=== PATIENT | female | born 1980 | race Caucasian/White ===

== ENCOUNTER 2016-05-21 08:54 | Inpatient (IN) ==
[2016-05-18 10:03] LABS: MANUAL DIFF NEEDED? NO
[2016-05-18 10:34] LABS: BASO% 0.3 % (0.0-0.8); EOS# 0.09 X1000 (0.0-0.7); EOS% 0.7 % (0.0-10.0); HEMOGLOBIN 12.3 g/dL (12.0-16.0); IMM GRAN# 0.02 X1000 (0.0-0.04); IMM GRAN% 0.2 % (0.0-0.5); LYMPH# 2.17 X1000 (1.2-3.4); LYMPH% 16.9 % (20.5-51.1); MCH 28.3 PG (27-31); MCHC 32.4 g/dL (33-37); MCV 87.4 FL (81-99); MONO% 6.2 % (1.7-9.3); NEUT% 75.7 % (42.2-75.2); PLT 389 X1000 (130-400); RBC 4.35 XMIL (4.2-5.4)
[2016-05-18 11:05] LABS: AGAP 15; BUN 6 mg/dL (8-22); CALCIUM 9.2 mg/dL (8.8-10.2); CHLORIDE 97 mmol/L (98-107); COSMO 271; POTASSIUM 3.7 mmol/L (3.5-5.1); SODIUM 137 mmol/L (136-145); TCO2 25 mmol/L (25-35)
[2016-05-21] MEDS ORDERED: PEPCID ONE (10:00)
[2016-05-21] MEDS ORDERED: REGLAN ONE (10:00)
[2016-05-21] MEDS ORDERED: VALIUM ONE (10:00)
[2016-05-21] MEDS ORDERED: LR 1,000 ML ONE ×3 (10:00→15:20)
[2016-05-21] MEDS ORDERED: MEFOXIN 2 GM/NS 50 ML ONE (10:01)
[2016-05-21] MEDS ORDERED: MARCAINE 0.25% PF ONE (10:57)
[2016-05-21] MEDS ORDERED: SODIUM CHLORIDE 0.9% 10 ML ONE (10:57)
[2016-05-21] MEDS ORDERED: EXPAREL 1.3% ONE (10:58)
[2016-05-21 12:48] LABS: URINE SOURCE CATH
[2016-05-21 12:56] LABS: BILIRUBIN URINE NEGATIVE (NEGATIVE); BLOOD URINE NEGATIVE (NEGATIVE); COLOR YELLOW; GLUCOSE URINE NEGATIVE (NEGATIVE); LEUKOCYTES URINE NEGATIVE (NEGATIVE); NITRITE URINE NEGATIVE (NEGATIVE); PROTEIN URINE 50 mg/dL (NEGATIVE); SP GRAVITY URINE 1.027; TURBIDITY URINE CLEAR (CLEAR); UROBILINOGEN URINE NORMAL (NORMAL)
[2016-05-21 13:12] LABS: URINE RBC <10 /HPF (<10)
[2016-05-21 13:13] LABS: UR EPITHELIAL CELLS >10 /HPF (<10); URINE BACTERIA NEGATIVE /HPF; URINE MICRO REVIEW NEEDED? YES; URINE WBC <10 /HPF (<10)
[2016-05-21 13:18] LABS: URINE CASTS NONE SEEN; URINE CRYSTALS NONE SEEN; URINE SMALL ROUND CELLS NONE SEEN
[2016-05-21] MEDS ORDERED: FENTANYL ONE (13:21)
[2016-05-21] MEDS ORDERED: NS 1,000 ML ONE (13:21)
[2016-05-21] MEDS ORDERED: DIPRIVAN 1% ONE (13:22)
[2016-05-21] MEDS ORDERED: MORPHINE ONE (13:29)
[2016-05-21] MEDS: MORPHINE ONE ×4 (13:40→14:05)
[2016-05-21] MEDS ORDERED: ZOFRAN IV PRN (14:24)
[2016-05-21] MEDS ORDERED: MORPHINE IV PRN (14:24)
--- NOTE | 2016-05-21 14:54 | OPERATIVE NOTE ---
PROCEDURE DATE: 05/21/2016 PREOPERATIVE DIAGNOSIS: Splenic cyst (symptomatic). POSTOPERATIVE DIAGNOSIS: Splenic cyst (symptomatic). PROCEDURE: 1. Exploratory laparotomy. 2. Open splenectomy. SURGEON: Carl Hernandez MD STONEMASON SUPERVISOR: MD Dr. Jose Huffman, assisted with retraction and identification and ligation of the major splenic vessels. ANESTHESIA: General endotracheal. INTRAOPERATIVE FINDINGS: At least 8-9 cm cystic lesion noted on the edge of the spleen. COMPLICATIONS: None at time of dictation. ESTIMATED BLOOD LOSS: 50 mL. SPECIMENS REMOVED: Spleen. BRIEF HISTORY: The patient is a 35-year-old female presenting with left upper quadrant pain. She had a CT scan that showed a large cyst, it was believed to be the origin of her symptoms. Given this, we elected to perform a splenectomy. The risks, benefits, alternatives were discussed. She did receive her post splenectomy vaccines 2 weeks prior to her procedure. DESCRIPTION OF PROCEDURE: After informed consent was obtained, patient was brought to the operative theatre, transferred to the operative table and placed in the supine position. General endotracheal anesthesia was then performed without complication. A formal time-out was then performed confirming patient, date, procedure. All were in agreement. At that time, attention turned to the abdomen, after it was prepped and draped we made a standard midline incision on the upper aspect of the incision of the abdomen carried down through the subcutaneous tissue to the fascia, we entered into the abdomen on the linea alba. Once we were able to enter into the abdomen, we were able to palpate the spleen. Using a combination of blunt dissection and electrocautery, we were able to elevate the spleen from its position in the left upper quadrant to the midline. We used Bovie to cauterize the short gastric vessels. We identified the splenic artery and splenic vein and suture ligated both the splenic artery and splenic vein. We were able to preserve the tail of the pancreas. The large cyst was noted. It remained intact during entirety of the dissection. Once we had ligated the major vessels we were able to remove the spleen in its entirety. Again, the splenic vessels were hemostatic after ligation. The tail of the pancreas appeared to be intact and not injured. We irrigated out the area copiously. We re- examined the splenic bed, there was no active bleeding noted. We then irrigated out the abdomen again. There was no other pathology appreciated in the abdomen at this time. We then closed the abdomen in layers using 0 chromic for the peritoneum, running loop PDS for the fascia, and Monocryl for the skin. The patient tolerated the procedure well, was transferred to recovery room in stable condition. She will be admitted and monitored at least overnight.
[2016-05-21] MEDS ORDERED: NEOSTIGMINE ONE (15:19)
[2016-05-21] MEDS ORDERED: ZOFRAN ONE (15:19)
[2016-05-21] MEDS ORDERED: DECADRON ONE (15:20)
[2016-05-21] MEDS ORDERED: XYLOCAINE-MPF 2% ONE (15:20)
[2016-05-21] MEDS ORDERED: ROBINUL ONE (15:20)
[2016-05-21] MEDS ORDERED: NEO-SYNEPHRINE ONE (15:20)
[2016-05-21] MEDS ORDERED: NORCURON ONE (15:20)
[2016-05-21] MEDS ORDERED: QUELICIN (DOSE) ONE (15:20)
[2016-05-21] MEDS: LR 1,000 ML IV SCH (15:25)
[2016-05-21] MEDS: NORCO-10 PO PRN ×2 (16:57→21:00)
--- NOTE | 2016-05-21 20:09 | CONSULTATION ---
DATE OF CONSULTATION: 05/21/2016 CHIEF COMPLAINT: Postoperative medical management after splenectomy. HISTORY OF PRESENT ILLNESS: She is a 35-year-old white female, recently evaluated in my office with upper abdominal pain. The patient had an ultrasound of the abdomen done. It showed a large splenic cyst. This has been confirmed by CT scan. Patient is very symptomatic. Patient has been referred to Dr. Hernandez. He did the splenectomy. Postoperatively she is doing very well. She denies any anxiety symptoms. PAST MEDICAL HISTORY: Anxiety, metabolic syndrome, polycystic ovarian syndrome, Depression. PAST SURGICAL HISTORY: Surgery of the right hip. Benign breast biopsy. MEDICINES: Metformin 500 daily, Paxil 25 daily, Ultracet as needed, Xanax 1 mg daily, hydroxyzine 25 3 times daily. ALLERGIES: Not known. SOCIAL HISTORY: Lives in [place]. . No children. Works in the [employer] school. No drugs. No alcohol abuse. FAMILY HISTORY: Father is alive at 59. Mom is diabetes and overweight. One sister has Tourette's syndrome. HEALTH MAINTENANCE: Prior to the splenectomy, patient received pneumococcal vaccine, meningococcal vaccine, Haemophilus vaccine. REVIEW OF SYSTEMS: HEENT: No headache. No dizziness. No earache. No sore throat. Neck: No goiter. No lymphadenopathy. No bruit. Cardiopulmonary: No chest pain, shortness of breath, PND, orthopnea. GI: No nausea, vomiting, abdominal pain. : No history of hesitancy, frequency and no swelling of legs. No joint pain. Neurologic: Nonfocal. PHYSICAL EXAMINATION: Vital signs: Stable. HEENT: Atraumatic, normocephalic. Pupils equal, react to light. TMs are normal. Nose and throat within normal limits. Neck: Supple. No lymphadenopathy. No goiter. Chest: Bilateral air entry. No rales, no wheezing. Heart: Sounds are regular. Abdomen: Belly is soft. Midline abdominal scar with bandage noted. Bowel sounds are 1+. Extremities: No peripheral edema, cyanosis. Neurological: No obvious neurological deficits noted. INVESTIGATIONS: CBC, SMA 7 is normal. ASSESSMENT AND PLAN: 1. A 35-year-old white female, admitted to the hospital after splenectomy due to large cyst and the follow up on the histology. Continue the postoperative medical management. 2. Depression with anxiety, on Paxil and Xanax. 3. Polycystic ovarian syndrome, metformin 500 daily. Once again, thanks for the kind referral and will follow up.
[2016-05-21] MEDS: PERIDEX MT SCH (21:00)
[2016-05-21] MEDS: HYDROXYZINE PO SCH (21:00)
[2016-05-22] MEDS: LR 1,000 ML IV SCH ×3 (01:09→11:28)
[2016-05-22] MEDS: NORCO-10 PO PRN ×5 (01:10→17:27)
[2016-05-22] MEDS: HEPARIN SUBQ SCH ×2 (05:04→14:50)
--- NOTE | 2016-05-22 06:34 | PROGRESS NOTE ---
DATE: 05/22/2016 SUBJECTIVE: The patient is doing well. Her pain is mostly controlled currently. She is able to tolerate clear liquids. OBJECTIVE: Vital Signs: The patient is currently afebrile. Her vital signs have been stable. General: No acute distress. Alert and interactive. Cardiovascular: Regular rate and rhythm. Lungs: Grossly clear. Abdomen: Soft, appropriately tender to palpation. Incision with dressing in place. ASSESSMENT AND PLAN: A 35-year-old female, postoperative day 1 from open splenectomy for a splenic cyst. Postoperative day number 1: At this time, we will advance the patient's diet to a regular diet. We will see how she does through the course of the day. If she seems to be tolerating it well, we may consider discharge today versus tomorrow.
[2016-05-22] MEDS: PAXIL PO SCH ×2 (07:48→09:24)
[2016-05-22] MEDS: HYDROXYZINE PO SCH ×2 (07:48→10:11)
[2016-05-22] MEDS: PERIDEX MT SCH ×2 (07:49→10:11)
[2016-05-22] MEDS ORDERED: GLUCOPHAGE PO SCH (08:00)
[2016-05-22] MEDS ORDERED: KLONOPIN PO SCH (09:00)
[2016-05-22 15:49] VITALS: BP 126/68
--- NOTE | 2016-06-03 07:40 | DISCHARGE SUMMARY ---
ADMISSION DATE: 05/21/2016 DISCHARGE DATE: 05/22/2016 DISCHARGE SUMMARY ADDENDUM: During the procedure for her open splenectomy on it was noted that she did have a skin lesion in the exact area where a midline incision was made. Given this we elected to tailor our incision to incorporate this lesion. The lesion otherwise would have been completed bisected by the incision and this would have been problematic when it came to closure, therefore at the time of the procedure I elected to incorporate the skin lesion into the incision made. [email or web address]
== END 2016-05-22 18:36 | disposition home or self-care (01) | DRG 801 ==
LOC: SURHOLD 08:54 → 4N 14:10
PROVIDERS: ADMIT Surgery; ATTEND Surgery
PROC: 07TP0ZZ Resection of Spleen, Open Approach (ICD-10-PCS; principal; 2016-05-21 11:32)
DX: D73.4 Cyst of spleen (principal); E88.81 Metabolic syndrome and other insulin resistance; F32.9 Major depressive disorder, single episode, unspecified; M16.11 Unilateral primary osteoarthritis, right hip; F41.0 Panic disorder [episodic paroxysmal anxiety]; E28.2 Polycystic ovarian syndrome; Z82.49 Family history of ischemic heart disease and other diseases of the circulatory system; Z83.3 Family history of diabetes mellitus; Z79.84 Long term (current) use of oral hypoglycemic drugs; Z79.899 Other long term (current) drug therapy
CPT/HCPCS: 80048; 81001; 81025; 85025; 86850; 86900; 86901; 88305; 88313; 94761; 94799; C9290; J0330; J0694; J1100; J1644; J2270; J2370; J2405; J3010; J7030; J7120; J2710; S0020